=== PATIENT | male | born 1935 | race Caucasian/White ===

== ENCOUNTER 2019-05-28 16:31 | Inpatient (IN) ==
[2019-05-28] MEDS ORDERED: NITROGLYCERIN 2% OINT 1 INCH/GM PACK TOP STA (17:06)
[2019-05-28] MEDS ORDERED: ALBUTEROL 2.5 MG/3 ML NEB RESP TX PRN (17:55)
[2019-05-28 18:29] LABS: CKMB % 7.9 %
[2019-05-28 18:32] LABS: Troponin I 13.6 NG/ML (0.00-0.045)
[2019-05-28] MEDS ORDERED: PNEUMOCOCCAL VACCINE (13 VALENT) 0.5 ML SYRINGE IM ONE (18:53)
[2019-05-28] MEDS ORDERED: ASPIRIN CHEW 81 MG TABLET PO ONE (19:48)
[2019-05-28] MEDS ORDERED: ENOXAPARIN 100 MG/ML SYRINGE SUBCUT ONE (19:59)
[2019-05-28] MEDS ORDERED: ALUM/MAG/SIMETH/LIDO VISC 1:1 30 ML BOTTLE PO ONE (20:29)
[2019-05-28] MEDS: HYDROmorphone 2 MG/1 ML VIAL IV PRN (20:39)
[2019-05-28] MEDS ORDERED: PANTOPRAZOLE 40 MG VIAL IV SCH (21:00)
[2019-05-29] MEDS: HYDROmorphone 2 MG/1 ML VIAL IV PRN ×4 (00:05→19:47)
[2019-05-29 04:48] LABS: Basophils # 0.1 10*3/uL (0.0-0.2); Basophils % 0.8 % (0.0-0.8); Eosinophils # 0.1 10*3/uL (0.0-0.87); Eosinophils % 1.3 % (0.00-10.9); Hematocrit 39.6 VOL% (42.0-52.0); Hemoglobin 12.6 GM/DL (14.0-18.0); Immature Granulocytes % 0.3 %; Immature Granulocytes Absolute 0.03 #; Lymphocytes # 2.8 10*3/uL (1.4-4.0); Mean Corpuscular HGB Conc 31.8 GM/DL (32-36); Mean Corpuscular Volume 93.6 FL (87-102); Monocytes % 11.6 % (1.7-12.7); Platelet Count 181 T/CUMM (130-400); Red Blood Count 4.23 MC/CUMM (3.8-5.5); Red Cell Distribution Width 13.6 % (9.3-17.3); White Blood Count 9.8 T/CUMM (4-12)
[2019-05-29 04:54] LABS: INR 1.3; PT Patient Result 13.7 SECS (9.6-12.2)
[2019-05-29 05:15] LABS: CKMB % 5.4 %; Troponin I 12.7 NG/ML (0.00-0.045)
[2019-05-29 05:19] LABS: Albumin 3.2 G/DL (3.4-5.0); Bilirubin,Total 1.9 MG/DL (0.2-1.0); Calcium 9.1 MG/DL (8.5-10.1); Osmolality,Calculated 282.4 MOS/KG (273-304); Risk Ratio 3.15; Thyroid Stimulating Hormone 0.98 uIU/ml (0.358-3.74); Total Protein 6.8 G/DL (6.4-8.3)
[2019-05-29] MEDS: METOPROLOL SUCCINATE XL 50 MG TABLET PO SCH (08:10)
[2019-05-29] MEDS ORDERED: ASPIRIN CHEW 81 MG TABLET PO ONE (09:00)
[2019-05-29] MEDS ORDERED: LIDOCAINE 1% 20 ML VIAL ONE (09:51)
[2019-05-29] MEDS ORDERED: fentaNYL 100 MCG/2 ML VIAL ONE (10:22)
[2019-05-29] MEDS ORDERED: MIDAZOLAM 2 MG/2 ML VIAL ONE (10:22)
[2019-05-29] MEDS ORDERED: TIROFIBAN 5,000 MCG/100 ML PREMIX IV ONE (10:43)
[2019-05-29] MEDS ORDERED: HEPARIN 5,000 UNIT/1 ML VIAL ONE (10:44)
[2019-05-29] MEDS ORDERED: TIROFIBAN 5,000 MCG/100 ML PREMIX IV SCH (10:55)
[2019-05-29] MEDS ORDERED: TICAGRELOR 90 MG TABLET ONE (11:51)
[2019-05-29] MEDS ORDERED: SODIUM CHLORIDE 0.9% 1,000 ML IV SCH (12:30)
[2019-05-29] MEDS ORDERED: ONDANSETRON 4 MG/2 ML VIAL ONE (13:03)
[2019-05-29] MEDS: MORPHINE 4 MG/1 ML VIAL IV PRN (13:08)
[2019-05-29] MEDS: ONDANSETRON 4 MG/2 ML VIAL IV PRN ×2 (13:10→19:51)
[2019-05-29 13:50] LABS: CKMB % 3.5 %
[2019-05-29 13:55] LABS: Troponin I 8.25 NG/ML (0.00-0.045)
[2019-05-29 20:46] LABS: CKMB % 4.4 %
[2019-05-29 20:50] LABS: Troponin I 8.34 NG/ML (0.00-0.045)
[2019-05-29] MEDS ORDERED: PANTOPRAZOLE 40 MG TABLET PO SCH (21:00)
[2019-05-29] MEDS ORDERED: ROSUVASTATIN 20 MG TABLET PO SCH (21:00)
[2019-05-29] MEDS: TICAGRELOR 90 MG TABLET PO SCH (22:44)
[2019-05-30] MEDS: ONDANSETRON 4 MG/2 ML VIAL IV PRN (01:35)
[2019-05-30] MEDS: HYDROmorphone 2 MG/1 ML VIAL IV PRN (01:38)
[2019-05-30 05:17] LABS: Basophils % 0.4 % (0.0-0.8); Eosinophils # 0.1 10*3/uL (0.0-0.87); Eosinophils % 0.6 % (0.00-10.9); Hematocrit 37.7 VOL% (42.0-52.0); Hemoglobin 12.1 GM/DL (14.0-18.0); Immature Granulocytes % 0.4 %; Immature Granulocytes Absolute 0.04 #; Lymphocytes # 1.8 10*3/uL (1.4-4.0); Lymphocytes % 16.1 % (21.2-54.2); Mean Corpuscular HGB Conc 32.1 GM/DL (32-36); Mean Corpuscular Volume 91.7 FL (87-102); Mean Platelet Volume 11.2 FL (9.6-12.0); Monocytes % 9.1 % (1.7-12.7); Neutrophils % 73.4 % (38.7-73.9); Platelet Count 173 T/CUMM (130-400); Red Blood Count 4.11 MC/CUMM (3.8-5.5); Red Cell Distribution Width 13.4 % (9.3-17.3); White Blood Count 11.1 T/CUMM (4-12)
[2019-05-30 05:25] LABS: INR 1.2; PT Patient Result 12.7 SECS (9.6-12.2)
[2019-05-30 05:50] LABS: Albumin 2.8 G/DL (3.4-5.0); Bilirubin,Total 1.9 MG/DL (0.2-1.0); Calcium 8.6 MG/DL (8.5-10.1); Osmolality,Calculated 275.7 MOS/KG (273-304); Total Protein 6.7 G/DL (6.4-8.3)
[2019-05-30 05:51] LABS: CKMB % 3.9 %
[2019-05-30 05:53] LABS: Troponin I 8.23 NG/ML (0.00-0.045)
[2019-05-30] MEDS: MORPHINE 4 MG/1 ML VIAL IV PRN (08:38)
[2019-05-30] MEDS: TICAGRELOR 90 MG TABLET PO SCH (08:45)
[2019-05-30] MEDS: METOPROLOL SUCCINATE XL 50 MG TABLET PO SCH (08:45)
[2019-05-30] MEDS ORDERED: GABAPENTIN 600 MG TABLET PO SCH (09:00)
[2019-05-30] MEDS ORDERED: ASPIRIN CHEW 81 MG TABLET PO SCH (09:00)
[2019-05-30] MEDS ORDERED: POLYETHYLENE GLYCOL POWDER 17 GM PACK PO SCH (10:33)
[2019-05-30 12:18] VITALS: BP 119/69
== END 2019-05-30 16:27 | disposition home or self-care (01) | DRG 247 ==
LOC: EDBD → EDUNIT# → N.ED 16:31 → N.EDINP 17:55 → SUATTDRO 17:55 → N.CC 18:15 → N.TELES 05-29 15:38
PROVIDERS: ADMIT Internal Medicine Nephrology; ATTEND Internal Medicine
PROC: CLCCHCL (ICD-10-PCS; 2019-05-29 09:45)